=== PATIENT | male | born 1990 | race Caucasian/White ===

== ENCOUNTER 2022-12-12 12:39 | Inpatient (IN) | payer OTHER ==
[2022-12-12 13:06] VITALS: BMI 28.0
[2022-12-12] MEDS ORDERED: BUPRENORPHINE HCL 150 MCG, BUPRENORPHINE HCL 75 MCG BC ONE (15:12)
[2022-12-12] MEDS ORDERED: BISMUTH SUBSALICYLATE 524 MG/30 ML PO PRN (15:12)
[2022-12-12] MEDS ORDERED: ONDANSETRON *ODT* 4 MG TABLET SL PRN (15:12)
[2022-12-12] MEDS ORDERED: MAGNESIUM HYDROX 2400MG/30ML ORAL SUSPENSION 30 ML CUP PO PRN (15:12)
[2022-12-12] MEDS ORDERED: NALOXONE HCL (KLOXXADO) 8 MG SPRAY NS PRN (15:12)
[2022-12-12] MEDS ORDERED: BENZONATATE 200 MG CAPSULE PO PRN (15:12)
[2022-12-12] MEDS ORDERED: POLYETHYLENE GLYCOL (HEALTHYLAX) 3350 17 GM PACKET PO PRN (15:12)
[2022-12-12] MEDS ORDERED: IBUPROFEN 600 MG TABLET (FP) PO PRN (15:12)
[2022-12-12] MEDS ORDERED: DICYCLOMINE HCL 10 MG CAPSULE PO PRN (15:12)
[2022-12-12] MEDS ORDERED: ACETAMINOPHEN 325 MG TABLET (FP) PO PRN (15:12)
[2022-12-12] MEDS ORDERED: LOPERAMIDE HCL 2 MG CAPSULE PO PRN (15:12)
[2022-12-12] MEDS ORDERED: guaiFENesin 600 MG TABLET.ER (FP) PO PRN (15:12)
[2022-12-12] MEDS ORDERED: NALOXONE HCL 0.4 MG/ML VIAL IM PRN (15:12)
[2022-12-12] MEDS ORDERED: cloNIDine HCL 0.1 MG TABLET PO ONE (15:12)
[2022-12-12] MEDS ORDERED: BUPRENORPHINE HCL 150 MCG, BUPRENORPHINE HCL 75 MCG BC PRN (15:12)
[2022-12-12] MEDS ORDERED: MAG HYDROX/AL HYDROX/SIMETH 30 ML UNIT-DOSE CUP PO PRN (15:12)
[2022-12-12] MEDS ORDERED: BENZOCAINE/MENTHOL (CHLORASEPTIC ) LOZENGE MM PRN (15:12)
[2022-12-12] MEDS ORDERED: IBUPROFEN 400 MG TABLET (FP) PO PRN (15:12)
[2022-12-12] MEDS ORDERED: BUPRENORPHINE HCL 75 MCG FILM BC ONE (15:50)
[2022-12-12] MEDS ORDERED: BUPRENORPHINE HCL 150 MCG FILM BC ONE (15:50)
[2022-12-12] MEDS: diazePAM 5 MG TABLET PO PRN ×2 (16:29→22:09)
[2022-12-12] MEDS: NICOTINE 21 MG/24 HOURS TOPICAL PATCH TD SCH (16:31)
[2022-12-12] MEDS: PRENATAL VITAMINS W/ FOLIC ACID TABLET (FP) PO SCH (16:32)
[2022-12-12] MEDS ORDERED: NICOTINE 21 MG/24 HOURS TOPICAL PATCH ONE (16:33)
[2022-12-12] MEDS ORDERED: diazePAM 5 MG TABLET ONE (16:33)
[2022-12-12] MEDS ORDERED: PRENATAL VITAMINS W/ FOLIC ACID TABLET (FP) PO ONE (16:34)
[2022-12-12] MEDS: cloNIDine HCL 0.1 MG TABLET PO PRN (22:09)
[2022-12-12] MEDS: MELATONIN 5 MG TABLETS PO SCH (22:09)
[2022-12-12] MEDS: THIAMINE HCL 100 MG TABLET (FP) PO SCH (22:09)
[2022-12-13] MEDS ORDERED: BUPRENORPHINE HCL 150 MCG, BUPRENORPHINE HCL 75 MCG BC PRN
[2022-12-13] MEDS: BUPRENORPHINE HCL 150 MCG, BUPRENORPHINE HCL 75 MCG BC SCH ×2 (05:26→17:21)
[2022-12-13] MEDS: PRENATAL VITAMINS W/ FOLIC ACID TABLET (FP) PO SCH (09:20)
[2022-12-13] MEDS: NICOTINE 21 MG/24 HOURS TOPICAL PATCH TD SCH (09:20)
[2022-12-13] MEDS: diazePAM 5 MG TABLET PO PRN ×3 (09:20→22:17)
[2022-12-13] MEDS: NICOTINE 10 MG CARTRIDGE (INHALER) IH PRN (09:21)
[2022-12-13 11:29] LABS: HEMATOCRIT 40.6 % (35.4-49); HEMOGLOBIN 13.2 GM/dL (11.7-16.9); MCH 29.4 pg (25.7-33.7); MCHC 32.6 g/dl (32.0-35.9); MEAN CELL VOLUME 90.3 fl (80-96); MEAN PLT VOLUME 7.8 fl (7.5-11.1); PLATELET COUNT 301 10^3/uL (134-434); RDW 14.5 % (11.9-15.9)
[2022-12-13 11:31] LABS: POTASSIUM 4.2 mmol/L (3.5-5.1)
[2022-12-13 11:41] LABS: CALCIUM 9.1 mg/dL (8.5-10.1)
[2022-12-13 11:42] LABS: ALBUMIN 3.2 g/dl (3.4-5.0); BLOOD UREA NITROGEN 9.9 mg/dL (7-18)
[2022-12-13 11:45] LABS: CREATININE 0.8 mg/dL (0.55-1.3)
[2022-12-13 11:46] LABS: BILIRUBIN,TOTAL 0.4 mg/dL (0.2-1); TOT PROT 5.9 g/dl (6.4-8.2)
[2022-12-13] MEDS: THIAMINE HCL 100 MG TABLET (FP) PO SCH (22:15)
[2022-12-13] MEDS: MELATONIN 5 MG TABLETS PO SCH (22:15)
[2022-12-13] MEDS: cloNIDine HCL 0.1 MG TABLET PO PRN (22:17)
[2022-12-14] MEDS: BUPRENORPHINE HCL 450 MCG FILM BC SCH ×2 (05:32→18:08)
[2022-12-14] MEDS: diazePAM 5 MG TABLET PO PRN ×2 (05:34→12:34)
[2022-12-14] MEDS: NICOTINE 10 MG CARTRIDGE (INHALER) IH PRN (08:53)
[2022-12-14] MEDS: PRENATAL VITAMINS W/ FOLIC ACID TABLET (FP) PO SCH (10:11)
[2022-12-14] MEDS: METHOCARBAMOL 500 MG TABLET PO PRN (10:12)
[2022-12-14] MEDS: NICOTINE 21 MG/24 HOURS TOPICAL PATCH TD SCH (10:12)
[2022-12-14] MEDS: hydrOXYzine PAMOATE 25 MG CAPSULE (FP) PO PRN (18:09)
[2022-12-14] MEDS ORDERED: diazePAM 5 MG TABLET PO ONE (18:37)
[2022-12-14] MEDS: GABAPENTIN 100 MG CAPSULE PO SCH (22:07)
[2022-12-14] MEDS: THIAMINE HCL 100 MG TABLET (FP) PO SCH (22:07)
[2022-12-14] MEDS: MELATONIN 5 MG TABLETS PO SCH (22:07)
[2022-12-14] MEDS: QUEtiapine FUMARATE 100 MG TABLET (FP) PO SCH (22:07)
[2022-12-15] MEDS: BUPRENORPHINE/NALOXONE 4 MG/1 MG FILM PACKET SL SCH ×2 (06:53→17:50)
[2022-12-15] MEDS: GABAPENTIN 100 MG CAPSULE PO SCH ×3 (06:54→22:02)
[2022-12-15] MEDS: PRENATAL VITAMINS W/ FOLIC ACID TABLET (FP) PO SCH (09:45)
[2022-12-15] MEDS: NICOTINE 21 MG/24 HOURS TOPICAL PATCH TD SCH (09:45)
[2022-12-15] MEDS: NICOTINE 10 MG CARTRIDGE (INHALER) IH PRN (14:31)
[2022-12-15] MEDS: MELATONIN 5 MG TABLETS PO SCH (22:01)
[2022-12-15] MEDS: QUEtiapine FUMARATE 100 MG TABLET (FP) PO SCH (22:02)
[2022-12-15] MEDS: THIAMINE HCL 100 MG TABLET (FP) PO SCH (22:02)
[2022-12-15] MEDS: hydrOXYzine PAMOATE 25 MG CAPSULE (FP) PO PRN (22:04)
[2022-12-15] MEDS: METHOCARBAMOL 500 MG TABLET PO PRN (22:04)
[2022-12-16] MEDS: GABAPENTIN 100 MG CAPSULE PO SCH ×2 (05:38→15:17)
[2022-12-16] MEDS ORDERED: BUPRENORPHINE/NALOXONE 8 MG/2 MG FILM PACKET SL ONE (06:00)
[2022-12-16] MEDS: NICOTINE 10 MG CARTRIDGE (INHALER) IH PRN (08:18)
[2022-12-16 09:30] VITALS: BP 139/70; PULSE 77; RESP 18; TEMP 98
[2022-12-16] MEDS: NICOTINE 21 MG/24 HOURS TOPICAL PATCH TD SCH (11:17)
[2022-12-16] MEDS: PRENATAL VITAMINS W/ FOLIC ACID TABLET (FP) PO SCH (11:18)
== END 2022-12-16 11:04 | disposition home or self-care (01) | DRG 897 ==
LOC: YASAS 12:39 → Y3N 16:05
PROVIDERS: ADMIT Allergy & Immunology; ATTEND Surgery
PROC: HZ2ZZZZ Detoxification Services for Substance Abuse Treatment (ICD-10-PCS; principal; 2022-12-12)
DX: F11.23 Opioid dependence with withdrawal (principal); F10.20 Alcohol dependence, uncomplicated; F14.10 Cocaine abuse, uncomplicated; F13.10 Sedative, hypnotic or anxiolytic abuse, uncomplicated; F17.210 Nicotine dependence, cigarettes, uncomplicated; F31.9 Bipolar disorder, unspecified; F41.9 Anxiety disorder, unspecified; Z20.822 Contact with and (suspected) exposure to COVID-19; Z88.2 Allergy status to sulfonamides; Z56.0 Unemployment, unspecified; Z59.00 Homelessness unspecified
CPT/HCPCS: 36415; 80053; 83036; 85027; 86780; 87635; 93005; 93010